=== PATIENT | male | born 1975 | race Two or more races ===

== ENCOUNTER 2017-01-11 19:15 | Emergency (ER) | payer SELFPAY ==
[~2017-01-11 19:15] MED LIST: ETODOLAC ER400 MG PO; HYDROCODON-ACE1 EA15 PO; LYRICA150 MG/CAP OTHER; LYRICA75 MG/CAP PO; NORCO 5-325 TA1 EACH PO; ULTRAM50 M1 PO
[2017-01-11] MEDS ORDERED: NO HOME MEDICATION XX (20:40)
[2017-01-11] MEDS ORDERED: NORCO 5-325 TA1 EACH PO (21:35)
== END 2017-01-11 21:45 ==
LOC: EDMED 19:15
DX: S70.01XA Contusion of right hip, initial encounter (principal); F17.210 Nicotine dependence, cigarettes, uncomplicated; W01.0XXA Fall on same level from slipping, tripping and stumbling without subsequent striking against object, initial encounter; Y92.012 Bathroom of single-family (private) house as the place of occurrence of the external cause